=== PATIENT | male | born 1955 | race Caucasian/White ===

== ENCOUNTER 2017-08-19 04:34 | Observation (INO) | payer OTHER ==
[2017-08-19 04:34] VITALS: PULSE 84
[2017-08-19 04:37] VITALS: BMI 23.9
--- NOTE | 2017-08-19 05:20 | ED PDOC ---
Arrival/HPI - General Chief Complaint: Palpitations Time Seen by Provider: 08/19/17 04:37 Historian: Patient, EMS - History of Present Illness Narrative History of Present Illness (Text): 08/19/17 04:50 62 year old male, whose past medical history includes atrial fibrillation, cardiac stent, hypertension, IDDM, and COPD, presents to the emergency department by ambulance following onset at home of chest pain and subsequent rapid heart rate. Patient was noted by paramedics to be in SVT and was administered Adenosine with subsequent conversions to normal sinus rhythm. Patient states his chest pain has disappeared. Patient has taken nitroglycerin and aspirin prior. Patient is currently asymptomatic. Patient denies any fever, chills, shortness of breath, nausea, vomiting, diarrhea, urinary symptoms, back pain, neck pain, headache, dizziness, or any other complaints. Symptom Onset: Gradual Symptom Course: Resolved Activities at Onset: Light Context: Home Past Medical History - Provider Review Nursing Documentation Reviewed: Yes - Infectious Disease Hx of Infectious Diseases: None - Tetanus Immunization Tetanus Immunization: Up to Date - Cardiac Hx Cardiac Disorders: Yes Hx Cardiac Arrhythmia: Yes (svt) Hx Hypertension: Yes Hx Pacemaker: No - Pulmonary Hx Respiratory Disorders: Yes (PNEUMOTHORAX-LUNG NODULE RIGHT HAD BX DONE - NEG. ) Hx Chronic Obstructive Pulmonary Disease (COPD): Yes - Neurological Hx Neurological Disorder: No Hx Alzheimer's Disease: No HX Cerebrovascular Accident: No Hx Dementia: No Hx Dizziness: No Hx Meningitis: No Hx Migraine: No Hx Parkinson's Disease: No Hx Seizures: No Hx Transient Ischemic Attacks (TIA): No - HEENT Hx HEENT Disorder: Yes (blind left eye, impaired right eye) Hx Cataracts: Yes (bilateral laser sx) Other/Comment: legally blind - Renal Hx Renal Disorder: No Hx Dialysis: No Hx Kidney Stones: No Hx Neurogenic Bladder: No Hx Pyelonephritis: No Hx Renal Cancer: No Hx Renal Failure: No - Endocrine/Metabolic Hx Endocrine Disorders: Yes Hx Diabetes Mellitus Type 1: Yes - Hematological/Oncological Hx Blood Disorders: No Hx AIDS: No Hx Anemia: No Hx Cancer: No Hx Chemotherapy: No Hx Cirrhosis: No Hx Hepatitis A: No Hx Hepatitis B: No Hx Hepatitis C: No Hx Metastasis: No Hx Shingles: No Hx Unexplained Bleeding: No - Integumentary Hx Dermatological Disorder: No Hx Basal Cell Carcinoma: No Hx Eczema: No Hx Melanoma: No Hx Psoriasis: No Hx Squamous Cell Carcinoma: No - Musculoskeletal/Rheumatological Hx Musculoskeletal Disorders: No Hx Falls: No - Gastrointestinal Hx Gastrointestinal Disorders: Yes Hx Gastroesophageal Reflux: Yes - Genitourinary/Gynecological Hx Genitourinary Disorders: No Hx Hematuria: No Hx Incontinence: No Hx Prostate Problems: No Hx Sexually Transmitted Diseases: No Hx Urinary Tract Infection: No - Psychiatric Hx Psychophysiologic Disorder: No Hx Anxiety: No Hx Bipolar Disorder: No Hx Depression: No Hx Emotional Abuse: No Hx Hallucinations: No Hx Panic Disorder: No Hx Post Traumatic Stress Disorder: No Hx Psychosis: No Hx Physical Abuse: No Hx Schizophrenia: No Hx Sexual Abuse: No Hx Substance Use: No - Past Surgical History Past Surgical History: Non-Contributing - Surgical History Hx Amputation: No Hx Appendectomy: No Hx Cardiac Catheterization: Yes (2010) Hx Cholecystectomy: No Hx Coronary Stent: Yes Hx Gastric Bypass Surgery: No Hx Hysterectomy: No Hx Joint Replacement: No Hx Kidney Transplant: No Hx Liver Transplant: No Hx Mastectomy: No Hx Musculoskeletal Surgery: No Hx Open Heart Surgery: No Hx Orthopedic Surgery: No Hx Splenectomy: No Hx Valve Replacement: No Other/Comment: laser eye surgery, right lung nodule bx neg - Anesthesia Hx Anesthesia Reactions: No Hx Malignant Hyperthermia: No - Suicidal Assessment Feels Threatened In Home Enviroment: No Family/Social History - Physician Review Nursing Documentation Reviewed: Yes Family/Social History: No Known Family HX Smoking Status: Former Smoker Hx Alcohol Use: Yes (ocasional beer) Frequency of alcohol use: Socially Hx Substance Use: No Hx Substance Use Treatment: No Allergies/Home Meds Allergies/Adverse Reactions: Allergies No Known Allergies Allergy (Verified 08/19/17 05:08) Home Medications: Home Meds Medication Instructions Recorded Confirmed Simvastatin 40 mg PO DAILY 10/28/12 08/19/17 Sitagliptin Phosphate [Januvia] 100 mg PO DAILY 12/23/14 08/19/17 Brimonidine 0.15% [Alphagan P 1 drop OP BID 03/17/15 08/19/17 0.15% Opht] Allopurinol [Zyloprim] 300 mg PO DAILY 08/19/17 08/19/17 Aspirin [Kensal Aspirin] 81 mg PO DAILY 08/19/17 08/19/17 Bisacodyl [Dulcolax] 5 mg PO HS 08/19/17 08/19/17 Cholecalciferol (Vitamin D3) 50,000 unit PO QWK 08/19/17 08/19/17 [Vitamin D3] Diltiazem HCl [Diltiazem ER] 240 mg PO DAILY 08/19/17 08/19/17 Empagliflozin [Jardiance] 25 mg PO DAILY 08/19/17 08/19/17 Esomeprazole Magnesium [Nexium] 40 mg PO DAILY 08/19/17 08/19/17 Glimepiride [Amaryl] 1 mg PO 08/19/17 Glimepiride [amaRYL] 2 mg PO DAILY 08/19/17 08/19/17 Metformin HCl [Glucophage] 1,000 mg PO DAILY 08/19/17 08/19/17 Metoprolol Succinate [Toprol XL] 100 mg PO BID 08/19/17 08/19/17 [id number] Ethyl Esters [OMEGA 3] 2 tab PO BID 08/19/17 08/19/17 Polyethylene Glycol 3350 [Miralax] 17 gm PO DAILY 08/19/17 08/19/17 Ranitidine HCl [Zantac] 150 mg PO DAILY 08/19/17 08/19/17 Rivaroxaban [Xarelto] 20 mg PO DAILY 08/19/17 08/19/17 Review of Systems - Physician Review All systems were reviewed & negative as marked: Yes - Review of Systems Constitutional: absent: Fevers, Other (Chills) Respiratory: absent: SOB Cardiovascular: Chest Pain Gastrointestinal: absent: Diarrhea, Nausea, Vomiting Genitourinary Male: absent: Dysuria, Frequency, Hematuria Musculoskeletal: absent: Back Pain, Neck Pain Neurological: absent: Headache, Dizziness Physical Exam Vital Signs Reviewed: Yes Vital Signs Temp Pulse Resp BP Pulse Ox 08/19/17 04:40 98.4 F 99 H 18 152/94 H 100 Temperature: Afebrile Blood Pressure: Normal Pulse: Regular Respiratory Rate: Normal Appearance: Positive for: Well-Appearing, Non-Toxic, Comfortable Pain Distress: None Mental Status: Positive for: Alert and Oriented X 3 - Systems Exam Head: Present: Atraumatic, Normocephalic Pupils: Present: PERRL Extroacular Muscles: Present: EOMI Conjunctiva: Present: Normal Mouth: Present: Moist Mucous Membranes Neck: Present: Normal Range of Motion Respiratory/Chest: Present: Clear to Auscultation, Good Air Exchange. No: Respiratory Distress, Accessory Muscle Use Cardiovascular: Present: Regular Rate and Rhythm, Normal S1, S2. No: Murmurs Abdomen: Present: Normal Bowel Sounds. No: Tenderness, Distention, Peritoneal Signs Back: Present: Normal Inspection Upper Extremity: Present: Normal Inspection. No: Cyanosis, Edema Lower Extremity: Present: Normal Inspection. No: Edema Neurological: Present: GCS=15, CN II-XII Intact, Speech Normal Skin: Present: Warm, Dry, Normal Color. No: Rashes Psychiatric: Present: Alert, Oriented x 3, Normal Insight, Normal Concentration Medical Decision Making ED Course and Treatment: 08/19/17 04:50 Impression: 62 year old male presents for evaluation following onset at home of chest pain and subsequent rapid heart rate. Patient past medical history includes atrial fibrillation and cardiac stent. Plan: -- EKG -- Labs -- Chest X-ray -- Reassess and disposition Progress Notes: EKG shows NSR at 98 BPM with no acute changes. Interpreted by me. 08/19/17 05:52 CXR Impression: As read by me, no acute process. 08/19/17 06:[address] Trinidad who is aware and agrees with the plan. Accepts patient into his service with Dr. Reis as consult. - Lab Interpretations Lab Results: 08/19/17 05:10 08/19/17 05:10 Lab Results 08/19/17 05:10: WBC 8.5, RBC 4.97, Hgb 14.0, Hct 43.0, MCV 86.5, MCH 28.2, MCHC 32.6, RDW 18.0 H, Plt Count 234, MPV 11.1 H 08/19/17 05:10: PT 17.1 H, INR 1.48 H, APTT 38.1 H 08/19/17 05:10: Sodium 145, Potassium 4.5, Chloride 106, Carbon Dioxide 27, Anion Gap 16, BUN 12, Creatinine 0.7 L, Est GFR ( Amer) > 60, Est GFR ( Non-Af Amer) > 60, Random Glucose 136 H, Calcium 9.9, Total Bilirubin 0.3, AST 43, ALT 32, Alkaline Phosphatase 62, Lactate Dehydrogenase 544, Total Creatine Kinase 72, Troponin I 0.01, NT-Pro-B Natriuret Pep 37.0, Total Protein 7.6, Albumin 4.2, Globulin 3.4, Albumin/Globulin Ratio 1.2 I have reviewed the lab results: Yes - RAD Interpretation Radiology Orders: 08/19/17 04:38 CHEST PORTABLE [RAD] Stat - EKG Interpretation Interpreted by ED Physician: Yes Type: 12 lead EKG - Medication Orders Current Medication Orders: Discontinued Medications Metoprolol Tartrate (Lopressor) 50 mg PO STAT STA Stop: 08/19/17 06:24 - Scribe Statement The provider has reviewed the documentation as recorded by the Scribe Hola Coyle Provider Scribe Attestation: All medical record entries made by the Scribe were at my direction and personally dictated by me. I have reviewed the chart and agree that the record accurately reflects my personal performance of the history, physical exam, medical decision making, and the department course for this patient. I have also personally directed, reviewed, and agree with the discharge instructions and disposition. Disposition/Present on Arrival - Present on Arrival Any Indicators Present on Arrival: No History of DVT/PE: No History of Uncontrolled Diabetes: No Urinary Catheter: No History of Decub. Ulcer: No History Surgical Site Infection Following: None - Disposition Have Diagnosis and Disposition been Completed?: Yes Diagnosis: SVT (supraventricular tachycardia), Chest pain Disposition: HOSPITALIZED Disposition Time: 06:25 Condition: STABLE Discharge Instructions (ExitCare): Chest Pain (ED) Referrals: Noel Larson MD [Primary Care Provider] - Follow up with primary Forms: [email or web address] (Faroese)
[2017-08-19 05:34] LABS: MEAN CELL VOLUME 86.5 fl (80.0-105.0); MEAN CORPUSCULAR HEMOGLOBIN 28.2 pg (25.0-35.0); MEAN CORPUSCULAR HGB CONC 32.6 g/dl (31.0-37.0); MEAN PLATELET VOLUME 11.1 fl (7.0-11.0); RBC 4.97 10^6/uL (3.5-6.1); WHITE BLOOD COUNT 8.5 10^3/ul (4.5-11.0)
[2017-08-19 05:40] LABS: INR 1.48 (0.93-1.08); PROTHROMBIN TIME 17.1 SECONDS (9.4-12.5)
[2017-08-19 05:41] LABS: PARTIAL THROMBOPLASTIN TIME 38.1 Seconds (25.1-36.5)
[2017-08-19 05:46] LABS: ALB/GLOB RATIO 1.2 (1.1-1.8); ALBUMIN 4.2 g/dL (3.0-4.8); ALT/SGPT 32 U/L (7-56); AST/SGOT 43 U/L (17-59); BLOOD UREA NITROGEN 12 mg/dL (7-21); CALCIUM 9.9 mg/dL (8.4-10.5); GFR AFRICAN-AMERICAN > 60; GFR NON-AFRICAN AMERICAN > 60
[2017-08-19 05:58] LABS: TROPONIN I 0.01 ng/mL
--- NOTE | 2017-08-19 08:17 | RAD ---
HISTORY: tachycardia COMPARISON: 03/17/2015 FINDINGS: LUNGS: Minimal bibasilar atelectasis PLEURA: No significant pleural effusion identified, no pneumothorax apparent. CARDIOVASCULAR: Normal. OSSEOUS STRUCTURES: No significant abnormalities. VISUALIZED UPPER ABDOMEN: Normal. OTHER FINDINGS: None. IMPRESSION: No active disease.
[2017-08-19 09:14] VITALS: O2SAT 97
--- NOTE | 2017-08-19 10:09 | CARD ---
APPROVED REPORT EKG Measurement Heart [id number] <Conclusion> Normal sinus rhythm Leftward axis Borderline ECG
[2017-08-19] MEDS ORDERED: diltiaZEM 240 mg/24 Hours CD Cap PO SCH (11:30)
[2017-08-19] MEDS ORDERED: Non Formulary Medication (Esomeprazole Magnesium [Nexium] 40 MG) PO SCH (11:30)
[2017-08-19] MEDS ORDERED: Pantoprazole 40 mg EC Tab PO ONE (12:15)
[2017-08-19] MEDS: Metoprolol Succinate 100 mg XL Tab PO SCH ×2 (12:42→18:36)
[2017-08-19] MEDS: Brimonidine 0.15% 50 DROP/5 ML BOTTLE OU SCH ×2 (14:02→18:36)
[2017-08-19 18:20] VITALS: BP 156/70; PULSE 62; RESP 16; TEMP 98.1
[2017-08-19] MEDS ORDERED: Bisacodyl 5mg EC Tab PO SCH (22:00)
--- NOTE | 2017-08-19 22:56 | CON ---
DATE: 08/19/2017 CARDIOLOGY CONSULTATION HISTORY OF PRESENT ILLNESS: The patient is a 62-year-old male who presented with chest pain associated with an SVT. He is back to normal sinus rhythm and is asymptomatic. 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 He has had extensive monitoring including a loop recorder, which showed small episodes of SVT in the past. His other cardiac conditions include history of PTCA and stent in 2014. He suffers from diabetes mellitus and hypercholesterolemia. The patient has also visual issues that has been chronic. He is currently chest pain free and without shortness of breath. SOCIAL HISTORY: The patient is an active smoker. REVIEW OF SYSTEMS: Fourteen-point review of systems is reviewed in detail. There are no cardiac symptomatology noted. PHYSICAL EXAMINATION: VITAL SIGNS: Heart rate is normal sinus rhythm in the 80s. Blood pressure varies from 142 to 168 systolic. NECK: Negative JVD. LUNGS: Without rales. HEART: Reveals S1, S2. EXTREMITIES: Without edema. EKG shows normal sinus rhythm, otherwise unremarkable. LABORATORY DATA: Troponins are negative x2. BUN and creatinine are unremarkable. Glucose is 136, hemoglobin is 14. IMPRESSION: 1. Paroxysmal supraventricular tachycardia. 2. Chest pain, which has resolved and associated with supraventricular tachycardia. 3. History of coronary artery disease. 4. Diabetes mellitus. 5. Visual issues. 6. Chronic obstructive pulmonary disease. 7. Hypercholesterolemia. 8. Hypertension. PLAN: Given these findings, I have discussed his issues with Dr. Cortez who has been following him chronically for paroxysmal SVT. We will resume his Xarelto, beta-blockers as well as diltiazem. We will arrange for an outpatient stress test given his history of CAD and stents in the past. In addition, if his SVT recurs, we will make arrangements with Dr. Cortez for ablation of his SVT. Ramin Reis MD
--- NOTE | 2017-08-20 02:58 | HP ---
HISTORY OF PRESENT ILLNESS: The patient is 62-year-old, known to me from previous admission. Stated he woke up around 3:00, he was sweating and he has rapid heart beat. Patient was sweaty, he was having palpitation. He went into the shower, thought he is feeling hot that is why he is feeling like that. After he finished shower, he was still having palpitation. So, he tried to wake up his , who he could not wake up, she was in deep sleep. He called ambulance himself and was brought to the Emergency Room. He was given adenosine on the way, and when they put monitor on him, his heart rate was 240. So he was given adenosine and he got converted into sinus rhythm. He did have chest pain earlier, but once his heart rate went down, his chest pain improved. He does admit that he took nitroglycerin and aspirin prior to coming to the hospital with no relief. By the time the patient reached the ER, he was totally asymptomatic and heart rate was in 90s. There is no fever or chills. No nausea or vomiting. No lightheadedness. Currently, he feels fine. PAST MEDICAL HISTORY: Significant for: 1. Chronic AFib. 2. Status post stress test in 2014. 3. COPD. 4. Hypertension. 5. Non-insulin dependent diabetes. 6. Status post angioplasty in 01/2015, had circumflex lesion and underwent bare-metal stent. 7. History of lung nodule and he underwent biopsy and developed pneumothorax after that. 8. History of gouty arthritis. 9. History of TB. For that, he was treated in . ALLERGIES: HE IS NOT ALLERGIC TO ANY MEDICATION. MEDICATIONS AT HOME: He is on Xarelto 20 mg daily, metoprolol 100 mg twice a day, diltiazem 240 daily, aspirin 81 daily, allopurinol 300 daily, Nexium 40 mg daily, Jardiance 25 mg daily, Dulcolax 5 mg at bedtime, Normanna-3, metformin 1000 daily, glimepiride 2 mg daily, ranitidine 150 daily, MiraLax, simvastatin 40 mg daily, and Januvia 100 mg daily. SOCIAL HISTORY: He is and lives with his . He still smokes 1 to 2 pack a day, socially drinks. He was even heavy smoker in the past. REVIEW OF SYSTEMS: Currently, he is asymptomatic. PHYSICAL EXAMINATION: GENERAL: He is awake, alert, oriented, and communicative. VITAL SIGNS: He is afebrile, pulse 74, respirations 18, and blood pressure 167/99. LUNGS: Bilateral good airflow. No rhonchi or crackle. HEART: S1 and S2 audible. ABDOMEN: Soft, nontender. No rebound. No guarding. NEUROLOGIC: He is awake, alert, oriented and communicative. He has an implanted defibrillator in the left upper chest area. LABORATORY DATA: WBC 8.5, hemoglobin 14, hematocrit 43, platelet 234. PT 17.1, INR 1.48, PTT 38.1. Chemistry: Sodium 145, potassium 4.5, chloride 106, CO2 is 27, BUN 12 and creatinine 0.7. Blood sugar of 162. ASSESSMENT: 1. Supraventricular tachycardia. 2. Chronic atrial fibrillation. 3. Hypertension. 4. Non-insulin dependent diabetes. 5. Status post defibrillator placement. PLAN: The patient was seen by Dr. Reis and plan is to refer him to Dr. Mcleod, who will do EPS study. Patient is scheduled to have stress test done next week, and in the meantime, he was restarted on medication. Patient is clinically stable. Spoke to Dr. Reis, he is okay to send patient home, and if he developed palpitation again, he should come back to emergency room, otherwise he should follow with Dr. Mcleod. Lorena Trinidad MD
[2017-08-20] MEDS ORDERED: Pantoprazole 40 mg EC Tab PO SCH (07:30)
[2017-08-20] MEDS ORDERED: Non Formulary Medication (Ranitidine Hcl [Zantac] 150 MG) PO SCH (10:00)
[2017-08-20] MEDS ORDERED: EMPAGLIFLOZIN 25 MG PO SCH (10:00)
[2017-08-20] MEDS ORDERED: POLYETHYLENE GLYCOL 17 GM PO SCH (10:00)
[2017-08-20] MEDS ORDERED: POLYETHYLENE GLYCOL 3350 17 GM/Dose PACKET PO SCH (10:00)
[2017-08-20] MEDS ORDERED: Non Formulary Medication (Simvastatin [Simvastatin] 40 MG) PO SCH (17:00)
[2017-08-26] MEDS ORDERED: Non Formulary Medication (Cholecalciferol (Vitamin D3) [Vitamin D3] 50,000 UNIT) PO SCH ×2 (10:00)
== END 2017-08-19 20:58 | disposition home or self-care (01) ==
LOC: ED 04:34 → ERH 06:21 → 2RNO 08:20
PROVIDERS: ADMIT Internal Medicine; ATTEND Internal Medicine
DX: I47.1 Supraventricular tachycardia (principal); R07.9 Chest pain, unspecified; I48.2 Chronic atrial fibrillation; J44.9 Chronic obstructive pulmonary disease, unspecified; I10 Essential (primary) hypertension; I25.10 Atherosclerotic heart disease of native coronary artery without angina pectoris; E11.9 Type 2 diabetes mellitus without complications; M10.9 Gout, unspecified; E78.00 Pure hypercholesterolemia, unspecified; K21.9 Gastro-esophageal reflux disease without esophagitis; F17.210 Nicotine dependence, cigarettes, uncomplicated; Z79.4 Long term (current) use of insulin; Z79.01 Long term (current) use of anticoagulants; Z95.810 Presence of automatic (implantable) cardiac defibrillator; Z95.5 Presence of coronary angioplasty implant and graft; Z86.11 Personal history of tuberculosis
CPT/HCPCS: 71045; 80053; 82550; 82948; 83615; 83880; 84484; 85027; 85610; 85730; 93005; 99284; G0378

== ENCOUNTER 2018-01-21 13:29 | Observation (INO) | payer OTHER ==
[2018-01-21 13:30] VITALS: PULSE 84; BMI 23.6
[2018-01-21 13:45] VITALS: O2SAT 98
--- NOTE | 2018-01-21 14:12 | ED PDOC ---
Arrival/HPI - General Chief Complaint: Palpitations Time Seen by Provider: 01/21/18 13:49 Historian: Patient EM Caveat: Unstable Vital Signs - History of Present Illness Narrative History of Present Illness (Text): 01/21/18 14:13 A 62 year old male, whose past medical history includes hypertension, atrial fibrillation(on Xarelto), chronic obstructive pulmonary disease, diabetes type 1 , GERD, and coronary stent x 1, presents to the emergency department complaining of chest pain and palpitations. He reports upon waking up, he smoked 5 cigarettes. Patient went to take a shower and afterwards began experiencing symptoms, as well as room-spinning sensation dizziness for a few seconds. He reports associated left arm pain (radiating from left shoulder to left elbow). He took Aspirin 81 mg, 1 SL NTG, and other medications, but had not much relief. En route to the hospital, the patient was given 2 doses of adenosine(6,12) per EMS which brought his HR down. Patient denies vomiting, or any other complaints at this time. Also, patient states he has been smoking for 50 years and smokes at least 7-8 packs per week. PMD: Dr. Larson [employer] Specialist: Dr. Iyer 01/21/18 18:34 Time/Duration: Prior to Arrival Symptom Onset: Sudden Symptom Course: Improving Quality: Pressure Severity Level: Mild Activities at Onset: Rest Context: Home Past Medical History - Provider Review Nursing Documentation Reviewed: Yes - Travel History Have you recently traveled outside [place] w/in the past 3 mons?: No - Infectious Disease Hx of Infectious Diseases: None - Tetanus Immunization Tetanus Immunization: Up to Date - Cardiac Hx Atrial Fibrillation: Yes Hx Hypertension: Yes - Pulmonary Hx Chronic Obstructive Pulmonary Disease (COPD): Yes - Neurological Hx Neurological Disorder: No Hx Alzheimer's Disease: No HX Cerebrovascular Accident: No Hx Dementia: No Hx Dizziness: No Hx Meningitis: No Hx Migraine: No Hx Parkinson's Disease: No Hx Seizures: No Hx Transient Ischemic Attacks (TIA): No - HEENT Hx HEENT Disorder: Yes (blind left eye, impaired right eye) Hx Blind: Yes (Legally blind) Hx Cataracts: Yes (bilateral laser sx) Other/Comment: legally blind - Renal Hx Renal Disorder: No - Endocrine/Metabolic Hx Endocrine Disorders: Yes Hx Diabetes Mellitus Type 1: Yes - Hematological/Oncological Hx Blood Disorders: No - Integumentary Hx Dermatological Disorder: No Hx Basal Cell Carcinoma: No Hx Eczema: No Hx Melanoma: No Hx Psoriasis: No Hx Squamous Cell Carcinoma: No - Musculoskeletal/Rheumatological Hx Arthritis: Yes (knees, elbows) Hx Falls: No Hx Fractures: Yes (right arm years ago) Hx Gout: Yes - Gastrointestinal Hx Gastrointestinal Disorders: Yes Hx Gastroesophageal Reflux: Yes - Genitourinary/Gynecological Hx Genitourinary Disorders: No Hx Cervical Cancer: No Hx Hematuria: No - Psychiatric Hx Substance Use: No - Past Surgical History Past Surgical History: Non-Contributing - Surgical History Hx Cardiac Catheterization: Yes (2011) Hx Cholecystectomy: No Hx Coronary Stent: Yes (x1) Hx Valve Replacement: No Other/Comment: laser eye surgery, right lung nodule bx neg - Anesthesia Hx Anesthesia Reactions: No Hx Malignant Hyperthermia: No - Suicidal Assessment Feels Threatened In Home Enviroment: No Family/Social History - Physician Review Nursing Documentation Reviewed: Yes Family/Social History: No Known Family HX Smoking Status: Former Smoker Hx Alcohol Use: Yes (ocasional beer) Hx Substance Use: No Hx Substance Use Treatment: No Allergies/Home Meds Allergies/Adverse Reactions: Allergies No Known Allergies Allergy (Verified 08/19/17 05:08) Home Medications: Home Meds Medication Instructions Recorded Confirmed Simvastatin 40 mg PO DAILY 10/28/12 01/21/18 Sitagliptin Phosphate [Januvia] 100 mg PO DAILY 12/23/14 01/21/18 Brimonidine 0.15% [Alphagan P 1 drop OP BID 03/17/15 01/21/18 0.15% Opht] Allopurinol [Zyloprim] 300 mg PO DAILY 08/19/17 01/21/18 Aspirin [[place] Aspirin] 81 mg PO DAILY 08/19/17 01/21/18 Cholecalciferol (Vitamin D3) 50,000 unit PO QWK 08/19/17 01/21/18 [Vitamin D3] Diltiazem HCl [Diltiazem ER] 240 mg PO DAILY 08/19/17 01/21/18 Empagliflozin [Jardiance] 25 mg PO DAILY 08/19/17 01/21/18 Esomeprazole Magnesium [Nexium] 40 mg PO DAILY 08/19/17 01/21/18 Glimepiride [amaRYL] 2 mg PO DAILY 08/19/17 01/21/18 Metformin HCl [Glucophage] 1,000 mg PO DAILY 08/19/17 01/21/18 Metoprolol Succinate XL [Toprol XL] 100 mg PO BID 08/19/17 01/21/18 [id number] Ethyl Esters [OMEGA 3] 2 tab PO BID 08/19/17 01/21/18 Ranitidine HCl [Zantac] 150 mg PO DAILY 08/19/17 01/21/18 Rivaroxaban [Xarelto] 20 mg PO DAILY 08/19/17 01/21/18 Losartan [Cozaar] 0 mg PO DAILY 01/21/18 01/21/18 Review of Systems - Physician Review All systems were reviewed & negative as marked: Yes - Review of Systems Cardiovascular: Chest Pain, Palpitations Gastrointestinal: Nausea. absent: Vomiting Musculoskeletal: Other (left arm pain (starting from left shoulder down to left elbow) Neurological: Dizziness Physical Exam Vital Signs Reviewed: Yes Vital Signs Temp Pulse Resp BP Pulse Ox 01/21/18 17:14 61 18 138/69 98 01/21/18 15:28 64 18 144/67 98 01/21/18 15:25 72 18 150/60 98 01/21/18 13:44 98.9 F 80 24 121/59 L 98 Temperature: Afebrile Blood Pressure: Normal Pulse: Regular Respiratory Rate: Normal Appearance: Positive for: Well-Appearing, Non-Toxic, Comfortable Pain Distress: None Mental Status: Positive for: Alert and Oriented X 3 - Systems Exam Head: Present: Atraumatic, Normocephalic Pupils: Present: PERRL Extroacular Muscles: Present: EOMI Conjunctiva: Present: Normal Mouth: Present: Moist Mucous Membranes Neck: Present: Normal Range of Motion Respiratory/Chest: Present: Clear to Auscultation, Good Air Exchange. No: Respiratory Distress, Accessory Muscle Use Cardiovascular: Present: Regular Rate and Rhythm, Tachycardic. No: Murmurs Abdomen: No: Tenderness, Distention, Peritoneal Signs Back: Present: Normal Inspection Upper Extremity: Present: Normal Inspection. No: Cyanosis, Edema Lower Extremity: Present: Normal Inspection. No: Edema Neurological: Present: GCS=15, CN II-XII Intact, Speech Normal Skin: Present: Warm, Dry, Normal Color. No: Rashes Psychiatric: Present: Alert, Oriented x 3, Normal Insight, Normal Concentration Medical Decision Making ED Course and Treatment: 01/21/18 14:17 Impression: 62 year old male with palpitations and chest pain. Given the patient had 2 dose of adenosine to control his HR and is currently on rate controlling medication, is at high risk for an arrhythmia. He will be monitored for any resurgance of SVT and will have cardiology consulted. Differential Diagnosis included but are not limited to: Arrythmia ACS Valvular abnormality Plan: -- Chest X-ray --Labs -- Reassess and disposition Progress Notes: HR 70s-80s NSR w/ normotensive pressures. Patient remains comfortable and has no complaints at this time. 01/21/2018 15:12 Chest X-ray IMPRESSION: No active disease. Dictator: Hermelindo Smith MD Spoke to Dr. Reis(cardiology) who agrees with plan for observation. He will see patient and requests patient to be restarted on his home medications. Spoke to Dr. Trinidad(PCP) who accepts the patient under her service. - Lab Interpretations Lab Results: 01/21/18 13:50 01/21/18 13:50 Lab Results 01/21/18 13:50: Sodium 144, Potassium 4.2, Chloride 106, Carbon Dioxide 25, Anion Gap 17, BUN 15, Creatinine 0.7 L, Est GFR ( Amer) > 60, Est GFR ( Non-Af Amer) > 60, Random Glucose 166 H, Calcium 9.9, Magnesium 2.1, Total Bilirubin 0.3, AST 23, ALT 24, Alkaline Phosphatase 94, NT-Pro-B Natriuret Pep 114, Total Protein 7.4, Albumin 4.3, Globulin 3.2, Albumin/Globulin Ratio 1.4 01/21/18 13:50: PT 15.6 H, INR 1.36, APTT 39.5 H 01/21/18 13:50: WBC 9.3, RBC 5.31, Hgb 15.2, Hct 44.4, MCV 83.6, MCH 28.6, MCHC 34.2, RDW 16.4 H, Plt Count 265, MPV 10.9, Gran % 68.5 H, Lymph % (Auto) 19.9 L , [place] % (Auto) 9.5 H, Eos % (Auto) 1.7, Baso % (Auto) 0.4, Gran # 6.35, Lymph # (Auto) 1.9, [place] # (Auto) 0.9 H, Eos # (Auto) 0.2, Baso # (Auto) 0.04 - RAD Interpretation Radiology Orders: 01/21/18 14:12 CHEST TWO VIEWS (PA/LAT) [RAD] Stat - Medication Orders Current Medication Orders: Metoprolol Succinate (Toprol Xl) 100 mg PO BRK HEATHER - Scribe Statement The provider has reviewed the documentation as recorded by the [place] Provider Scribe Provider Scribe Attestation: All medical record entries made by the Arielibmerry were at my direction and personally dictated by me. I have reviewed the chart and agree that the record accurately reflects my personal performance of the history, physical exam, medical decision making, and the department course for this patient. I have also personally directed, reviewed, and agree with the discharge instructions and disposition. Disposition/Present on Arrival - Present on Arrival Any Indicators Present on Arrival: No History of DVT/PE: No History of Uncontrolled Diabetes: No Urinary Catheter: No History of Decub. Ulcer: No History Surgical Site Infection Following: None - Disposition Have Diagnosis and Disposition been Completed?: Yes Diagnosis: SVT (supraventricular tachycardia), Chest pain Disposition: HOSPITALIZED Disposition Time: 15:12 Patient Plan: Observation Patient Problems: Current Active Problems Problem Status Onset Chest pain Acute SVT (supraventricular tachycardia) Acute Condition: IMPROVED
[2018-01-21 14:48] LABS: BASO # 0.04 K/mm3 (0.0-2.0); BASO % 0.4 % (0.0-3.0); EOS # 0.2 (0.0-0.7); EOS % 1.7 % (1.5-5.0); GRAN # 6.35 (1.4-6.5); GRAN % 68.5 % (50.0-68.0); HEMOGLOBIN 15.2 g/dL (14.0-18.0); LYMPH # 1.9 (1.2-3.4); LYMPH % 19.9 % (22.0-35.0); MEAN CELL VOLUME 83.6 fl (80.0-105.0); MEAN CORPUSCULAR HEMOGLOBIN 28.6 pg (25.0-35.0); MEAN CORPUSCULAR HGB CONC 34.2 g/dl (31.0-37.0); MEAN PLATELET VOLUME 10.9 fl (7.0-11.0); MONO # 0.9 (0.1-0.6); MONO % 9.5 % (1.0-6.0); RBC 5.31 10^6/uL (3.5-6.1); RED CELL DISTRIBUTION WIDTH 16.4 % (11.5-14.5); WHITE BLOOD COUNT 9.3 10^3/ul (4.5-11.0)
[2018-01-21 14:54] LABS: INR 1.36; PARTIAL THROMBOPLASTIN TIME 39.5 Seconds (25.1-36.5); PROTHROMBIN TIME 15.6 SECONDS (9.4-12.5)
[2018-01-21 14:56] LABS: ALB/GLOB RATIO 1.4 (1.1-1.8); ALBUMIN 4.3 g/dL (3.0-4.8); ALT/SGPT 24 U/L (7-56); AST/SGOT 23 U/L (17-59); BLOOD UREA NITROGEN 15 mg/dL (7-21); CALCIUM 9.9 mg/dL (8.4-10.5); GFR AFRICAN-AMERICAN > 60; GFR NON-AFRICAN AMERICAN > 60
[2018-01-21 15:04] LABS: B-TYPE NATRIURETIC PEPTIDE 114 pg/mL (0-450)
--- NOTE | 2018-01-21 15:13 | RAD ---
Date of service: 01/21/2018 HISTORY: sob COMPARISON: 08/19/2017 TECHNIQUE: Chest PA and lateral FINDINGS: LUNGS: No active pulmonary disease. PLEURA: No significant pleural effusion identified. No pneumothorax apparent. CARDIOVASCULAR: Normal. OSSEOUS STRUCTURES: No significant abnormalities. VISUALIZED UPPER ABDOMEN: Normal. OTHER FINDINGS: None. IMPRESSION: No active disease.
--- NOTE | 2018-01-21 18:49 | CARD ---
APPROVED REPORT Date of service: 01/21/2018 EKG Measurement Heart [id number] <Conclusion> Normal sinus rhythm Left axis deviation Abnormal ECG
[2018-01-21] MEDS: Insulin Lispro (humaLOG) MEDIUM Coverage SC SCH (21:56)
[2018-01-21] MEDS: Brimonidine 0.15% 50 DROP/5 ML BOTTLE OU SCH (23:16)
[2018-01-22 01:02] VITALS: RESP 19
--- NOTE | 2018-01-22 05:50 | HP ---
Copied To: Lorena Trinidad MD Attending MD: Lorena Trinidad MD DATE OF EXAM: 01/21/2018 HISTORY OF PRESENT ILLNESS: The patient is 62 years old, known to me from multiple previous admissions, came to emergency room because of rapid heart beat with some chest pressure, denies any fever or chills. The patient was recently admitted in August with similar complaint, has a stress test done and it was found to be normal. So, the patient was found to be in SVT, was given beta dasha with good response. He is being admitted for further observation. The patient denies feeling weak or dizzy. He does not have fever or chills. He seems to be compliant with medication, but still smokes heavy. PAST MEDICAL HISTORY: Significant for: 1. Non-insulin dependent diabetes. 2. Hypertension. 3. Hyperlipidemia. 4. Coronary artery disease. 5. Chronic AFib. 6. COPD. 7. Active smoker. 8. Status post angioplasty in 03/2015, had circumflex stented with bare-metal stent. 9. History of lung nodule, had biopsy done, complicated with pneumothorax, had chest tube placed and improved. 10. History of gout. 11. History of TB. ALLERGIES: HE IS NOT ALLERGIC TO ANY MEDICATION. MEDICATIONS AT HOME: He is on Xarelto 20 mg daily, metoprolol 100 mg twice a day, Januvia 100 mg daily, simvastatin 40 mg daily, ranitidine 150 daily, glimepiride 2 mg daily, metformin 1000 twice a day, Jardiance 25 daily, Nexium 40 mg daily. SOCIAL HISTORY: He is an active smoker. He is , lives with his . He still smokes 2 packs a day. Socially drinks. REVIEW OF SYSTEMS: Significant for palpitation, but doing well now. PHYSICAL EXAMINATION GENERAL: He is awake, alert, oriented, communicative. VITAL SIGNS: He is afebrile, pulse 61, respirations 18, and blood pressure 138/69. LUNGS: Bilaterally diffusely decreased breath sound. HEART: S1 and S2 audible. ABDOMEN: Soft, nontender. No rebound. No guarding. NEUROLOGIC: He is awake, alert, oriented and communicative. Moves all extremities. LABORATORY DATA: WBC 9.3, hemoglobin 15, hematocrit 44, platelet 265. PT 15.6, INR 1.36. Chemistry: Sodium 144, potassium 4.2, chloride 106, CO2 of 25, BUN 15, creatinine 0.7, blood sugar 166. LFTs within normal limit. X-ray of the chest shows no active disease. ASSESSMENT: 1. Palpitation and rapid atrial fibrillation. 2. Hypertension. 3. Hyperlipidemia. 4. Coronary artery disease status post angioplasty. 5. Non-insulin dependent diabetes. 6. Active smoker. PLAN: We will resume the patient's usual medication. We will follow up his electrolytes, follow up troponin and Dr. Reis is consulted. We will follow up the patient in a.m. Lorena Trinidad MD
[2018-01-22 07:02] VITALS: TEMP 98.1
[2018-01-22 07:14] LABS: ALB/GLOB RATIO 1.3 (1.1-1.8); ALBUMIN 4.2 g/dL (3.0-4.8); ALT/SGPT 29 U/L (7-56); AST/SGOT 22 U/L (17-59); BLOOD UREA NITROGEN 13 mg/dL (7-21); CALCIUM 9.7 mg/dL (8.4-10.5); GFR AFRICAN-AMERICAN > 60; GFR NON-AFRICAN AMERICAN > 60; HDL CHOLESTEROL 22 mg/dL (29-60); TROPONIN I < 0.01 ng/mL
[2018-01-22 07:15] LABS: LDL CHOLESTEROL 52 mg/dL (0-129)
[2018-01-22 07:19] LABS: FREE T4 1.09 ng/dL (0.78-2.19)
[2018-01-22] MEDS ORDERED: Metoprolol Succinate 100 mg XL Tab PO SCH ×2 (08:00→10:00)
[2018-01-22] MEDS: Insulin Lispro (humaLOG) MEDIUM Coverage SC SCH ×2 (08:45→13:06)
[2018-01-22 08:50] VITALS: BP 127/65
[2018-01-22] MEDS: Brimonidine 0.15% 50 DROP/5 ML BOTTLE OU SCH (09:41)
[2018-01-22] MEDS ORDERED: Non Formulary Medication (Simvastatin [Simvastatin] 40 MG) PO SCH (10:00)
[2018-01-22] MEDS ORDERED: diltiaZEM 240 mg/24 Hours CD Cap PO SCH (10:00)
--- NOTE | 2018-01-22 12:32 | CON ---
Copied To: Ramin Reis MD Attending MD: Ramin Reis MD DATE: 01/22/2018 CARDIOLOGY CONSULTATION HISTORY: The patient is a 62-year-old male, who presents with a documented SVT. He was given Adenocard in the field and converted to normal sinus rhythm. The patient's past medical history has included episodes of supraventricular tachycardia as well as paroxysmal atrial fibrillation. He has been started on anticoagulation with Xarelto and treated with Cardizem as well as beta blockers. In addition, he suffers from hypertension, diabetes mellitus, COPD and has had documented coronary stents in the past. A stress test that was performed early this year revealed no active ischemia. SOCIAL HISTORY: The patient still continues to smoke despite medical advice. REVIEW OF SYSTEMS: Fourteen-point review of systems was reviewed in detail. No angina, no shortness of breath. Other than his palpitations associated with the SVT, there are no other cardiac symptoms. The patient has poor vision, which limits his exercise ability. PHYSICAL EXAMINATION: GENERAL: The patient is in no acute distress. VITAL SIGNS: Blood pressure is 127/65, the heart rate is in the 60s, normal sinus rhythm. NECK: Negative JVD. LUNGS: Without rales. HEART: Reveals S1, S2. EXTREMITIES: Without edema. EKG shows normal sinus rhythm with no acute changes. LABORATORY DATA: Hemoglobin is 15.2. Chemistries: Troponins are negative x2. BUN and creatinine are unremarkable. Glucose is 202. IMPRESSION: 1. Recurrent supraventricular tachycardia. 2. Stable angina. 3. Diabetes mellitus. 4. Hypertension. 5. Hypercholesterolemia. 6. History of percutaneous transluminal coronary angioplasty and stent in the past. PLAN: Given these findings, the patient EP evaluation several months ago for possible ablation. No ablation procedure was done. We will restart his anticoagulation as well as his beta-blockers and Cardizem. We will refer the patient back to Dr. Mcleod, the EP doctor for ablation of his SVT. I have discussed with the patient about his need to stop smoking. From a cardiac perspective, the patient can be discharged and followed up with EP for further management. Ramin Reis MD [facility] # [id number]
[2018-01-22 12:39] VITALS: PULSE 60
--- NOTE | 2018-01-22 17:31 | US ---
PROCEDURE: Lower extremity JOHN exam HISTORY: Peripheral vascular disease with pain and claudication. Diabetes. Smoker. PHYSICIAN(S): Ramin Yanes MD. FINDINGS: The resting JOHN's are mildly abnormal: Right, 0.86 and left, 0.6 The brachial systolic pressures are symmetric. There is a 65 mm difference between high thigh pressures, lower on the left. However, the high thigh PVR waveforms are normal and symmetric. This could represent subtle left iliac and/ or tibial disease. The left low thigh, calf, and ankle PVR waveforms are moderately blunted. There is a 24 mm gradient across the left thigh. Findings are suggestive of left SFA occlusive disease. There is a significant gradient across the right knee. The right calf and ankle PVR waveforms are relatively normal. This could represent distal right SFA, popliteal, and/ or tibial disease. IMPRESSION: 1. Mildly abnormal ABIs at rest. 2. Left SFA occlusive disease. 3. Possible left iliac and/ or common femoral artery disease. 4. Distal right SFA, popliteal, and/ or tibial disease.
--- NOTE | 2018-01-23 11:08 | DS ---
Copied To: Lorena Trinidad MD Attending MD: Lorena Trinidad MD HISTORY OF PRESENT ILLNESS: The patient came to emergency room because of palpitation. He also has left-sided chest pain radiating to left shoulder and arm. The patient states it happened especially when he smokes and drinks, and has coffee at the same time. The patient was seen by Dr. Mcleod almost a month ago. The patient also had stress test done in 08/2017 and was essentially unremarkable. The patient was observed overnight. No signs of acute ischemia, and his heart rate seems to be under control. The patient was seen by Dr. Reis, who recommended that he should be seen by Dr. Mcleod for possible ablation of intermittent SVT and AFib. PHYSICAL EXAMINATION: GENERAL: He is awake, alert, oriented, communicative. VITAL SIGNS: He is afebrile, pulse 60, respiration 18, blood pressure 127/65. LUNGS: Bilateral good airflow. No rhonchi or crackle. HEART: S1 and S2 audible. ABDOMEN: Soft, nontender. No rebound, no guarding. NEUROLOGIC: The patient is awake, alert, oriented, communicative. LABORATORY DATA: WBC is 9.3, hemoglobin 15, hematocrit 44, platelet 265. Chemistry, blood sugar is 173. ASSESSMENT: 1. Palpitation, seems to be under control now. 2. History of chronic atrial fibrillation, on Xarelto. 3. Ixt-unvfjvf-vxmhgtkik diabetes. 4. Active smoker. 5. Hypertension. 6. Hyperlipidemia. PLAN: The patient did mention he gets leg pain upon walking small distance. I will order for arterial Doppler. Will be followed as outpatient, and he will follow up with his PMD. Lorena Trinidad MD
== END 2018-01-22 16:04 | disposition home or self-care (01) ==
LOC: ED 13:29 → ERH 15:23 → 2RSO 18:55
PROVIDERS: ADMIT Internal Medicine; ATTEND Internal Medicine
DX: I47.1 Supraventricular tachycardia (principal); I48.0 Paroxysmal atrial fibrillation; I48.2 Chronic atrial fibrillation; I10 Essential (primary) hypertension; E11.9 Type 2 diabetes mellitus without complications; I25.118 Atherosclerotic heart disease of native coronary artery with other forms of angina pectoris; E78.5 Hyperlipidemia, unspecified; E78.00 Pure hypercholesterolemia, unspecified; R00.2 Palpitations; J44.9 Chronic obstructive pulmonary disease, unspecified; K21.9 Gastro-esophageal reflux disease without esophagitis; R91.1 Solitary pulmonary nodule; M10.9 Gout, unspecified; F17.210 Nicotine dependence, cigarettes, uncomplicated; Z79.82 Long term (current) use of aspirin; Z79.84 Long term (current) use of oral hypoglycemic drugs; Z79.01 Long term (current) use of anticoagulants; Z86.11 Personal history of tuberculosis; Z95.5 Presence of coronary angioplasty implant and graft
CPT/HCPCS: 36415; 71046; 80053; 80061; 82948; 83036; 83735; 83880; 84100; 84439; 84443; 84484; 85025; 85610; 85730; 93005; 93923; 99285; G0378